=== PATIENT | male | born 1965 | race Caucasian/White ===

== ENCOUNTER 2018-08-25 09:55 | Inpatient (IN) ==
[2018-08-25] MEDS ORDERED: ZOFRAN IV PRN (12:43)
[2018-08-25] MEDS ORDERED: NS 1,000 ML IV SCH (12:45)
[2018-08-25 12:57] LABS: BASO# 0.01 X1000 (0.0-0.2); BASO% 0.1 % (0.0-0.8); EOS# 0.11 X1000 (0.0-0.7); HEMATOCRIT 35.1 % (42.0-52.0); HEMOGLOBIN 11.9 g/dL (14.0-18.0); IMM GRAN# 0.05 X1000 (0.0-0.04); IMM GRAN% 0.5 % (0.0-0.5); LYMPH% 9.3 % (20.5-51.1); MCH 29.3 PG (27-31); MCHC 33.9 g/dL (33-37); MCV 86.5 FL (81-99); MONO# 0.73 X1000 (0.11-0.59); MONO% 6.8 % (1.7-9.3); MPV 10.5 FL (7.4-10.4); NEUT# 8.91 X1000 (1.4-6.5); NEUT% 82.3 % (42.2-75.2); PLT 334 X1000 (130-400); RBC 4.06 XMIL (4.7-6.1); RDW 16.5 % (11.5-14.5); WBC 10.81 X1000 (4.8-10.8)
[2018-08-25 13:01] LABS: INR 1.15; PROTIME 15.6 Seconds (11.0-16.0)
[2018-08-25 13:13] LABS: AMYLASE 79 U/L (20-200); LIPASE 89 U/L (13-60)
[2018-08-25 13:15] LABS: AGAP 9; ALB/GLOB RATIO 0.7; ALBUMIN 3.1 g/dL (3.5-5.0); ALKALINE PHOSPHATASE 617 U/L (32-122); BUN 22 mg/dL (8-22); CALCIUM 8.9 mg/dL (8.8-10.2); CHLORIDE 96 mmol/L (98-107); CK PROFILE 183 U/L (24-204); COSMO 270; CREATININE 0.8 mg/dL (0.7-1.2); ESTIMATED GFR > 60; GLUCOSE 105 mg/dL (70-104); GOT 132 U/L (10-34); GPT 92 U/L (10-44); MAGNESIUM 1.9 mg/dL (1.5-2.7); PHOSPHORUS 3.1 mg/dL (2.7-4.5); POTASSIUM 3.7 mmol/L (3.5-5.1); SODIUM 133 mmol/L (136-145); TCO2 28 mmol/L (25-35); TOTAL BILIRUBIN 9.79 mg/dL (0.20-1.00); TOTAL PROTEIN 7.3 g/dL (6.3-8.3)
[2018-08-25 13:24] LABS: FREE T4 1.09 ng/dL (0.93-1.70); TSH 1.83 uIUmL (0.27-4.20)
[2018-08-25] MEDS ORDERED: ALBUMIN 25% IV ONE (13:34)
--- NOTE | 2018-08-25 14:19 | HISTORY AND PHYSICAL ---
PRIMARY CARE PHYSICIAN: NICOLAS Solis. HADOOP ENGINEER: Brandon Ruiz MD. CHIEF COMPLAINT: Weight loss and jaundice. HISTORY OF PRESENT ILLNESS: Mr. Meneses is a pleasant 53-year-old male with only known medical problem of hypertension. He comes in today with progressively worsening jaundice, mild abdominal discomfort, and a 25 pound weight loss over the past 2 months. He was told in January of last year that he had fatty liver after he had his gallbladder taken out but he never really followed up with that. Over the past 2 months, he has had progressive weight loss and decreased appetite. He also reports that over the past few weeks he has had a cough for which he saw his PCP, ghazala Solis. His blood pressure medicine was changed but this did not really improve symptoms. At that time, he had liver function tests done and was told they were elevated and if it were to get any worse he would need to see a GI doctor. He returned to his PCP and was told that his jaundice had gotten significantly worse and he would need to follow up with Dr. Ruiz. This has all happened over the past week, today he saw Dr. Ruiz who immediately sent him to the hospital for inpatient evaluation as the patient has been progressively jaundiced. The only other real symptom that he complains about is dark tarry stools and he was told over the weekend that he had positive Hemoccult x3. This was testing done on an outpatient basis by his PCP. On physical examination, the patient is significantly jaundiced but otherwise in no acute distress. He denies any alcohol or illicit drug use. Labs have been ordered. He will be admitted for further treatment and evaluation. PAST MEDICAL HISTORY: 1. Hypertension. 2. Nonalcoholic steatosis, steatohepatitis per his report. 3. Type 2 diabetes not requiring insulin. PAST SURGICAL HISTORY: Cholecystectomy, vasectomy, right knee arthroscopy. FAMILY HISTORY: Father from what was felt to be a brain aneurysm. His mother is alive and has heart disease, type 2 diabetes, congestive heart failure, and renal insufficiency. There is no malignancy that he can recall in his immediate family. REVIEW OF SYSTEMS: A 14-point review of systems obtained and found to be negative with the exception of the HPI. HOME MEDICATIONS: Dapagliflozin/metformin 5 mg/1000 mg tablet 1 daily, Hyzaar 50/12.5 mg 1 p.o. daily, glimepiride 4 mg daily. ALLERGIES: No known drug allergies. PHYSICAL EXAMINATION: VITAL SIGNS: Blood pressure is 117/75, heart rate is 86, respiratory rate is 12, O2 saturation 99% on room air, temperature is 98.4. GENERAL: This is a somewhat disheveled-appearing 53-year-old male lying in the hospital bed in no acute distress. SKIN: He is significantly jaundiced. HEENT: Head is atraumatic and normocephalic. Pupils are equal, round, and reactive to light. Oral mucosa is dry and pale. Sclerae are icteric. NECK: Supple. Trachea is midline. There is no JVD. CHEST: Clear to auscultation bilaterally. CARDIOVASCULAR: Regular rate and rhythm. S1 and S2 is noted. GASTROINTESTINAL: Soft, nondistended, mild hepatomegaly is noted. Bowel sounds are hypoactive. EXTREMITIES: Trace edema. Pulses are 2+ bilaterally. DIAGNOSTIC DATA: WBC 10.81, hemoglobin 11.9, hematocrit 35.1. INR 1.15. Sodium 133, potassium 3.7, chloride 96, CO2 28, anion gap 9, BUN 22, creatinine 0.8, glucose 105, calcium 8.9, phosphorus 3.1, magnesium 1.9, total bilirubin 9.79, direct bilirubin 7.8, AST is 132, ALT 92, alkaline phosphatase 617, total protein 7.3, albumin 3.1, amylase 79, lipase 89. ASSESSMENT AND PLAN: 1. Asymptomatic/painless jaundice: Primary concern would be for malignancy given his progressive weight loss and his decreased appetite. His bilirubinemia pattern is more cholestatic in nature. Will check hepatitis panel as well as abdominal ultrasound and abdomen and pelvis CT. We have consulted Dr. Ruiz. We have also ordered CEA, AFP and CA-19-9. 2. Apparent GIB: While the patient denies dat melena or hematochezia, he did report he was told his Hemoccult was + x3. Will order iron studies and await GI recommendations and follow up on imaging. 3. Hypertension. The patient is borderline hypotensive so we will hold his antihypertensives for now, will restart if necessary. 4. Diabetes mellitus type 2 not requiring insulin. Will check a hemoglobin A1c, add pattern sugars, and sliding scale insulin. Deep venous thrombosis prophylaxis with sequential compression devices. Further recommendations to follow. Dictated by NICOLAS Gibson for Yareli Steele MD cc: NICOLAS Gibson MD Amanda Anderson, CRNP I performed a face to face encounter on the patient. I reviewed all labs and imaging on the patient. I agree with the H&P as dictated. was sent to the hospital as a direct admission with a chief complaint of painless jaundice. On exam, he was noted to be jaundiced with a protuberant abdomen. His laboratory studies were concerning for a cholestatic picture. He will undergo a CT of the abdomen and pelvis to further assess the findings. Will consult GI. We may likely require an oncology consultation. KETAN
[2018-08-25 14:51] LABS: URINE SOURCE CLEAN CATCH
[2018-08-25 14:57] LABS: IRON SATURATION 25 %; TIBC 244 ug/dL; TOTAL IRON 61 ug/dL (53-167); UNBOUND IRON 183 ug/dL (112-346)
[2018-08-25 15:15] LABS: BILIRUBIN URINE MODERATE (NEGATIVE); BLOOD URINE NEGATIVE (NEGATIVE); COLOR YELLOW; GLUCOSE URINE TRACE mg/dL (NEGATIVE); KETONE URINE NEGATIVE (NEGATIVE); LEUKOCYTES URINE NEGATIVE (NEGATIVE); NITRITE URINE NEGATIVE (NEGATIVE); PROTEIN URINE TRACE mg/dL (NEGATIVE); SP GRAVITY URINE 1.017; TURBIDITY URINE CLEAR (CLEAR); UROBILINOGEN URINE 3 mg/dL (NORMAL)
[2018-08-25 15:16] LABS: FERRITIN 596 ng/mL (30-400)
[2018-08-25 15:17] LABS: UR EPITHELIAL CELLS <10 /HPF (<10); URINE BACTERIA NEGATIVE /HPF; URINE RBC 20-40 /HPF (<10); URINE WBC <10 /HPF (<10)
--- NOTE | 2018-08-25 15:20 | Diag Imaging Result Doc PS360 ---
EXAM: CT ABD/PELVIS W/PO AND IV CON 08/25/2018 HISTORY: obstructive and painless jaundice TECHNIQUE: This exam was performed using automated exposure control, adjustment of mA or kV according to patient size, and/or use of iterative reconstruction technique. COMMENT: There is no evidence of acute cardiac or pulmonary disease. There is a noncalcified nodule in the lateral left lower lobe on image six measuring less than 6 mm in diameter. There are numerous lucent lesions throughout the liver presumably representing metastatic disease. There are no previous studies available for comparison. There is a apparent obstructing mass in the descending colon with extension beyond the serosa into the surrounding fat and with apparent paracolic adenopathy. There is left para-aortic adenopathy with a clearly pathologic node seen inferior to the renal pedicle measuring 2.5 cm in diameter. The portacaval node is abnormal in appearance with peripheral enhancement measuring 2.8 cm in diameter. There is extensive vanita hepatis adenopathy. This may be responsible for obstruction of the biliary system at the level of the confluence of the left and right duct. There has been cholecystectomy. There are granulomata in the spleen. The pancreas is unremarkable. The adrenal glands are not enlarged. The kidneys are without evidence of hydronephrosis or mass. The descending colonic mass abuts Gerota's fascia and there is some thickening of the fascia. There is a nodular density adjacent to the left kidney measuring 13 mm in diameter which may be an exophytic cyst. Pelvis: There is stool in the rectosigmoid colon. There is free fluid in the pelvis. The urinary bladder is not distended. The appendix is not distended but there are multiple nodules adjacent to the appendix and cecum which are probably peritoneal implants. There is degenerative disc disease at L5-S1 and bilateral spondylolysis at L5. No acute bony abnormalities are demonstrated. IMPRESSION: 1. Malignant mass in the descending colon producing obstruction of the colon with constipation in the right colon and transverse colon. Local invasion and local and retroperitoneal adenopathy. Malignant ascites with peritoneal implants. 2. Numerous hepatic metastatic lesions. Periportal adenopathy. 3. Possible metastatic lesion in the left lower lobe. Electronically signed by Franko Nagel 08/25/2018 3:17 PM
[2018-08-25] MEDS ORDERED: DILAUDID IV PRN (15:27)
--- NOTE | 2018-08-25 15:32 | Diag Imaging Result Doc PS360 ---
EXAM: US ABDOMEN-COMPLETE 08/25/2018 HISTORY: obstructive/painless jaundice TECHNIQUE: Abdominal ultrasound COMMENT: The pancreatic head and body are normal in appearance. The liver is markedly inhomogeneous with multiple hypoechoic masses. The visualized portions of the aorta and inferior vena cava are within normal limits. There is antegrade flow in the portal vein. The common hepatic duct is not distended measuring less than 5 mm. The spleen is not enlarged. The kidneys are without evidence of hydronephrosis or mass. The gallbladder is surgically absent. IMPRESSION: Extensive hepatic metastatic disease. Electronically signed by Franko Nagel 08/25/2018 3:29 PM
[2018-08-25] MEDS: HUMULIN R SUBQ SCH ×2 (18:13→22:28)
[2018-08-25] MEDS: FOLIC ACID 1 MG in NS 50 ML IV SCH (18:17)
[2018-08-26 06:28] LABS: BASO# 0.02 X1000 (0.0-0.2); BASO% 0.2 % (0.0-0.8); EOS# 0.18 X1000 (0.0-0.7); EOS% 1.6 % (0.0-10.0); HEMATOCRIT 35.2 % (42.0-52.0); IMM GRAN# 0.04 X1000 (0.0-0.04); IMM GRAN% 0.4 % (0.0-0.5); LYMPH# 1.13 X1000 (1.2-3.4); LYMPH% 10.1 % (20.5-51.1); MCH 29.8 PG (27-31); MCHC 34.1 g/dL (33-37); MCV 87.3 FL (81-99); MONO# 0.96 X1000 (0.11-0.59); MONO% 8.5 % (1.7-9.3); MPV 10.6 FL (7.4-10.4); NEUT# 8.91 X1000 (1.4-6.5); NEUT% 79.2 % (42.2-75.2); PLT 336 X1000 (130-400); RBC 4.03 XMIL (4.7-6.1); WBC 11.24 X1000 (4.8-10.8)
[2018-08-26 07:02] LABS: AGAP 13; ALB/GLOB RATIO 0.8; ALBUMIN 3.2 g/dL (3.5-5.0); ALKALINE PHOSPHATASE 613 U/L (32-122); BUN 19 mg/dL (8-22); CALCIUM 8.9 mg/dL (8.8-10.2); CHLORIDE 97 mmol/L (98-107); COSMO 279; ESTIMATED GFR > 60; GLUCOSE 123 mg/dL (70-104); GOT 125 U/L (10-34); GPT 87 U/L (10-44); SODIUM 138 mmol/L (136-145); TCO2 28 mmol/L (25-35); TOTAL BILIRUBIN 9.61 mg/dL (0.20-1.00); TOTAL PROTEIN 7.1 g/dL (6.3-8.3)
[2018-08-26] MEDS: HUMULIN R SUBQ SCH ×4 (07:31→20:46)
--- NOTE | 2018-08-26 09:34 | Diag Imaging Result Doc PS360 ---
CT GUIDED BX LIVER - 08/26/2018 INDICATION: liver metastasis TECHNIQUE: The risks and benefits of the procedure were discussed with the patient. All questions were answered. Written and verbal informed consent was obtained. Overlying skin was prepped and draped in sterile fashion. Anesthesia was achieved with injection of 10 cc of 1% lidocaine. COMPARISON: CT from 08/25/2018 FINDINGS: The right lobe of the liver was biopsied. Approximately 15 core needle biopsy specimens were obtained. Pathology evaluated frozen sections and indicated the specimens were adequate. There were no complications from the procedure. IMPRESSION: Successful and uncomplicated CT-guided liver metastasis biopsy. Electronically signed by Camilo Roman 08/26/2018 9:31 AM
[2018-08-26 11:21] LABS: HEPATITIS PROFILE ACUTE SEE COMMENTS
--- NOTE | 2018-08-26 15:42 | GASTROENTEROLOGY CONSULTATION ---
DATE: 08/26/2018 REASON FOR CONSULTATION: Obstructive jaundice. HISTORY OF PRESENT ILLNESS: Mr. Aj Meneses is a 53-year-old gentleman with past medical history of hypertension, noninsulin dependent diabetes, fatty liver, who was initially seen by myself in consultation on 08/18 for abnormal LFTs and weight loss, who presents with worsening jaundice and LFT abnormalities. The patient was initially diagnosed with fatty liver back in January 2018. He underwent a laparoscopic cholecystectomy in February for presumably dysfunctional gallbladder. Since that time he reported having cough and worsening LFTs with enzymes up to 500. He also reported a 20 pound weight loss over a 3-month period in the setting of decreased appetite, early satiety. He had Hemoccult done by his primary care doctor that was positive for blood. He denies any personal or family history of liver disease or GI malignancies. On 08/25 he re-presented with new onset jaundice. He had LFTs done on 01/17 that showed a total bilirubin of 3.8 with alkaline phosphatase of 548, AST of 100, ALT of 104, albumin of 3.7, total protein of 7.5. In the office the patient reported some abdominal discomfort with gas. No significant abdominal pain, nausea, vomiting, diarrhea, constipation. He says he felt warm but no documented fevers. His vital signs were notable for some mild low-grade tachycardia. Given his new onset jaundice and tachycardia, the patient was referred to [facility] for evaluation of possible cholangitis and/or choledocholithiasis. On presentation his labs were notable for mild leukocytosis of 10.8, hemoglobin of 11.9, cholestatic LFTs with a total bilirubin of 9.7, AST of 132, ALT of 92, alkaline phosphatase of 617, sodium 133. CEA of 1521. CT abdomen and pelvis revealed a malignant mass in descending colon producing obstruction of the colon with constipation in the right colon and transverse colon, local invasion and local retroperitoneal adenopathy, malignant ascites with peritoneal implants. He also had numerous hepatic metastases with periportal lymphadenopathy and a possible metastatic lesion in the left lower lobe of the lung. Followup ultrasound showed extensive metastatic disease within normal common bile duct measuring 5 mm without intra or extrahepatic biliary dilation. PAST MEDICAL HISTORY: As per HPI. PAST SURGICAL HISTORY: Cholecystectomy in February 2018, meniscus repair. HOME MEDICATIONS: Losartan, hydrochlorothiazide, glimepiride, Xigduo XR. ALLERGIES: No known drug allergies. FAMILY HISTORY: No family history of GI malignancies or liver disease. SOCIAL HISTORY: No smoking, alcohol or drug use. REVIEW OF SYSTEMS: As per HPI, otherwise 12 point review of systems is negative. PHYSICAL EXAMINATION: Vital Signs: Temperature 98.7 degrees, heart rate 101, respiratory rate 18, blood pressure 119/70, O2 saturation 98% on room air. General: Patient is well-nourished, well-developed male in no acute distress. HEENT: Sclera icterus is present. Extraocular motor intact. Moist mucous membranes. Neck: Supple. No JVD. No lymphadenopathy. Cardiac: Tachycardic, regular. No murmurs. Lungs: Clear to auscultation bilaterally. No wheezing. Abdomen: Soft, nondistended. Mild tenderness to palpation in the upper abdomen. No rebound or guarding. No ascites. Extremities: No clubbing, cyanosis, or edema. Skin: Jaundice. Warm and well perfused. NEUROLOGIC: Nonfocal. LABS: White count of 11.24, hemoglobin of 12.0, platelets of 336,000. Sodium of 138, potassium 5.0, chloride 97, bicarb 28, BUN 19, creatinine 1.0, glucose of 123, ferritin 596, total bilirubin of 9.6, AST of 125, ALT of 87, alkaline phosphatase 613, iron 61, TIBC of 244, total bilirubin of 9.6, AST of 125, ALT of 87, alkaline phosphatase of 613, albumin of 3.2, lipase of 89, vitamin B12 710, folate 8.0, TSH 1.8. UA shows bilirubinemia and protein. RBCs are present as well. IMAGING: As we discussed in the HPI. ASSESSMENT AND PLAN: Mr. Aj Meneses is a 53-year-old gentleman with history of hypertension, [id number] diabetes, who presents with obstructive jaundice secondary to diffuse metastatic disease from a descending colon mass that is partially obstructed. The patient denies any GI obstructive symptoms including constipation, nausea, vomiting, or significant abdominal pain. He does not appear to be chologenic. His vitals are only notable for mild tachycardia, no fevers, significant abdominal pain. His mental status is normal. His INR is normal. There is no evidence of biliary obstruction as the biliary bile ducts are not dilated. The patient is being seen in consultation with Hematology/Oncology with Dr. Bustamante who is aware of this case and I have spoken to him extensively about this patient. We have set him up for a biopsy of the liver metastasis. He is currently NPO. We are trending his liver function tests daily. I have made the patient and his aware of the concern for colon cancer and overall I believe the prognosis is not great given his rapid increase in bilirubin in a matter of a week. Other findings notable including anemia likely secondary to his colon mass, hyponatremia which is resolved. He has some borderline hyperkalemia likely from volume depletion, abnormal liver function tests with a cholestatic pattern likely secondary to intrahepatic obstruction from known metastases. Thank you for this consult. We will follow with you. Please call with any questions or concerns.
[2018-08-26] MEDS ORDERED: ZOFRAN 16 MG in NS 100 ML IV ONE (16:00)
[2018-08-26] MEDS ORDERED: AVASTIN IV ONE (16:30)
[2018-08-26] MEDS ORDERED: NS IV ONE ×2 (16:30→20:00)
--- NOTE | 2018-08-26 16:53 | PROGRESS NOTE ---
DATE: 08/26/2018 SUBJECTIVE: The patient is resting comfortably in bed. He denies having any pain or shortness of breath. OBJECTIVE: Vital Signs: Temperature 98.2 degrees, blood pressure 123/86, heart rate 107, respirations 18, O2 saturation 100% on room air. General: This is a middle- aged male lying in bed in no acute distress. Skin: Positive for jaundice. Eyes: Positive for scleral icterus. Heart: S1, S2 normal. Tachycardic. Lungs: Equal air entry bilaterally. Abdomen: Distended, positive for ascites, nontender. Extremities: Trace pedal edema. Neurologic: The patient is alert and oriented x3. LABORATORY DATA: White blood cell count 11, hemoglobin 12, hematocrit 35, platelets 336,000. Sodium 138, potassium 5, chloride 97, CO2 28, BUN 19, creatinine 1, glucose 123. AST 125, ALT 87, alkaline phosphatase 613, albumin 3.2, total bilirubin 9.6. ASSESSMENT AND PLAN: 1. Colonic mass with widespread metastasis. The patient had a liver biopsy done this morning. We will await the pathology report and further recommendations from Oncology. 2. Diabetes mellitus type 2. Continue with sliding scale insulin. 3. Folate deficiency. Will start the patient on folic acid. 4. Deep vein thrombosis prophylaxis. We will continue with sequential compression devices for today and start Lovenox tomorrow. cc: Yareli Steele MD MTDD
[2018-08-26] MEDS ORDERED: D5W IV ONE (18:00)
[2018-08-26] MEDS ORDERED: LEUCOVORIN IV ONE (18:00)
[2018-08-26] MEDS ORDERED: [UNRECOGNIZED DRUG - OTHER] IV ONE (20:00)
[2018-08-26] MEDS ORDERED: [UNRECOGNIZED DRUG - MIXTURE] IV ONE (20:00)
[2018-08-26] MEDS: MIRALAX PO SCH (20:46)
[2018-08-27] MEDS: HUMULIN R SUBQ SCH ×4 (06:38→21:06)
[2018-08-27 07:40] LABS: BASO# 0.01 X1000 (0.0-0.2); BASO% 0.1 % (0.0-0.8); EOS# 0.16 X1000 (0.0-0.7); EOS% 1.8 % (0.0-10.0); HEMATOCRIT 33.8 % (42.0-52.0); HEMOGLOBIN 11.2 g/dL (14.0-18.0); IMM GRAN# 0.03 X1000 (0.0-0.04); IMM GRAN% 0.3 % (0.0-0.5); LYMPH# 0.95 X1000 (1.2-3.4); LYMPH% 10.7 % (20.5-51.1); MCH 29.2 PG (27-31); MCHC 33.1 g/dL (33-37); MONO# 0.66 X1000 (0.11-0.59); MONO% 7.5 % (1.7-9.3); MPV 10.6 FL (7.4-10.4); NEUT# 7.04 X1000 (1.4-6.5); NEUT% 79.6 % (42.2-75.2); PLT 294 X1000 (130-400); RBC 3.84 XMIL (4.7-6.1); RDW 17.3 % (11.5-14.5); WBC 8.85 X1000 (4.8-10.8)
[2018-08-27] MEDS: PROTONIX PO SCH (08:10)
[2018-08-27 08:31] LABS: AGAP 14; BUN 15 mg/dL (8-22); CHLORIDE 99 mmol/L (98-107); GLUCOSE 113 mg/dL (70-104); POTASSIUM 4.1 mmol/L (3.5-5.1); SODIUM 137 mmol/L (136-145); TCO2 24 mmol/L (25-35)
[2018-08-27 08:32] LABS: ALB/GLOB RATIO 0.8; ALBUMIN 2.9 g/dL (3.5-5.0); ALKALINE PHOSPHATASE 614 U/L (32-122); CALCIUM 8.7 mg/dL (8.8-10.2); COSMO 275; CREATININE 0.9 mg/dL (0.7-1.2); ESTIMATED GFR > 60; GOT 114 U/L (10-34); GPT 84 U/L (10-44); TOTAL BILIRUBIN 9.34 mg/dL (0.20-1.00); TOTAL PROTEIN 6.7 g/dL (6.3-8.3)
[2018-08-27] MEDS: LOVENOX SUBQ SCH (10:47)
[2018-08-27] MEDS: MIRALAX PO SCH ×3 (10:52→19:02)
[2018-08-27 11:16] LABS: IRON SATURATION 26 %; TIBC 227 ug/dL; TOTAL IRON 59 ug/dL (53-167); UNBOUND IRON 168 ug/dL (112-346)
--- NOTE | 2018-08-27 17:25 | HEMO/ONC CONSULTATION ---
DATE: 08/27/2018 REQUESTING PHYSICIAN: Dr. Ruiz. REASON FOR CONSULTATION: Metastatic colon cancer. HISTORY OF PRESENT ILLNESS: Patient is a 53-year-old male, with a past medical history of hypertension, diabetes and fatty liver, who was recently seen by Dr. Ruiz for weight loss and elevated LFTs. He had mild jaundice at that time. Within a week, his LFTs have significantly worsened. Of note, he had laparoscopic cholecystectomy in February for presumably gallbladder dysfunction. He was admitted to the hospital for evaluation and further management. A CT scan was obtained, which revealed the malignant descending colon mass, along with retroperitoneal adenopathy, malignant ascites, peripheral implants, diffuse metastases involving the liver and possible lung metastases. CEA was elevated at 1521. I have been consulted for further management. Bilirubin at this point is over 9. PAST MEDICAL HISTORY: Diabetes, hypertension, fatty liver disease. PAST SURGICAL HISTORY: Cholecystectomy in February, meniscus repair. ALLERGIES: No known drug allergies. FAMILY HISTORY: Noncontributory. SOCIAL HISTORY: Patient is and lives with his . He denies smoking, alcohol, or substance abuse. REVIEW OF SYSTEMS: Positive for weight loss and some abdominal discomfort. All other review of systems are negative. CURRENT MEDICATIONS: Lovenox, Dilaudid, Zofran, MiraLAX. PHYSICAL EXAMINATION: General: Patient is a well-developed, well-nourished male, in no acute distress. Vital Signs: Temperature 97.7 degrees, pulse 109, blood pressure 125/84. Eyes: EOMI. PERRLA. Anicteric. Mucous membranes are moist. Neck: Supple without JVD, thyromegaly, or nodules. Lymph node survey: Negative. Cardiac Exam: Regular rate and rhythm. Normal S1, S2. Chest: Clear to auscultation. No wheezes or crackles. Abdomen: Soft, nontender, without hepatosplenomegaly or masses. Extremities: No cyanosis, clubbing or edema. Neurological exam: Alert and oriented x3. No motor deficits. Skin: Without rashes. LABORATORY DATA: White count 11.2, hemoglobin 12, hematocrit 35, MCV 87, platelets 336. BUN 19, creatinine 1.0, bilirubin 9.6, alkaline phosphatase 613, AST 125, ALT 87. CEA 1521, B 12 710, folate 8.0. X-RAY DATA: CT of the abdomen and pelvis: Malignant mass in the descending colon with constipation in the right colon and the transverse colon. Local invasion and retroperitoneal lymphadenopathy, malignant ascites and peritoneal implants, numerous hepatic metastasis, periportal lymphadenopathy, possible metastatic lesion in the left lower lobe. ASSESSMENT AND PLAN: 1. Colonic malignancy with diffuse metastasis and impending liver failure: I had a lengthy discussion regarding his disease status, prognosis and further management with the patient and his family, as well as with Dr. Ruiz and Dr. Steele. We will proceed as soon as possible with a liver ultrasound. I have discussed with Dr. Roman and with Dr. Marshall Sierra to obtain viable pathology and issue a report immediately. Time is of the essence here and, hence, I will make arrangements to get him started on chemotherapy as soon as I know that this is malignancy. Patient understands the seriousness of this issue and is willing to jump in and proceed with chemotherapy if possible within a day. Based on his liver function tests, I think we may be able to offer him FOLFOX with Avastin with some dose reductions. He understands the risks of side effects as well as with his chemotherapy given his significantly elevated bilirubin. This has been discussed with the physicians involved as well. 2. Deep vein thrombosis prophylaxis: He is at high risk for deep vein thrombosis. Continue Lovenox as you are doing. 3. Constipation: Start MiraLAX three times a day at this time. At some point, we may have to consider a stent placement for this. 4. Anemia: Check iron profile. This may be iron deficiency. Intravenous iron as needed. Folate levels are low. Proceed with repeating these as well. Thank you for this consult. cc: Jatin Bustamante MD [facility]
--- NOTE | 2018-08-27 17:32 | PROGRESS NOTE ---
DATE: 08/27/2018 SUBJECTIVE: The patient states that he feels fine. He was started on chemotherapy yesterday. He has no complaints today. OBJECTIVE: Vital Signs: Temperature 98.1 degrees, blood pressure 123/76, heart rate 89, respirations 18, and O2 saturations 100% on room air. General: This is a chronically ill- appearing middle-aged male lying in bed in no acute distress. HEENT: Head normocephalic, atraumatic. Eyes are positive for scleral icterus. Skin: The patient is jaundiced. Heart: S1, S2 normal. Regular rate and rhythm. Lungs: Clear to auscultation bilaterally. No wheezing. No rales. No rhonchi. Abdomen: Positive bowel sounds. Soft, mildly distended. Nontender. Extremities: No edema. No cyanosis. No calf tenderness. Neurologic: The patient is alert and oriented x4. No focal neurologic deficits noted. LABORATORY: White blood cell count 8.8, hemoglobin 11, hematocrit 33, platelets 294,000. Sodium 137, potassium 4.1, BUN 15, creatinine 0.9, glucose 113, AST 114, ALT 84, alkaline phosphatase 614, and total bilirubin 9.3. ASSESSMENT AND PLAN: 1. Colonic mass with widespread metastasis. The liver biopsy pathology report is currently pending. Continue with chemotherapy as ordered by the oncologist. 2. Deep vein thrombosis prophylaxis. Continue with Lovenox. 3. Diabetes mellitus type 2. Continue on sliding scale insulin. 4. Anemia. Stable. cc: Yareli Steele MD
[2018-08-27] MEDS ORDERED: ZOFRAN 16 MG in NS 100 ML IV ONE (18:00)
[2018-08-27] MEDS ORDERED: DECADRON 20 MG in NS 100 ML IV ONE (18:30)
[2018-08-27] MEDS ORDERED: EMEND 150 MG in NS 145 ML IV ONE (19:00)
[2018-08-27] MEDS ORDERED: [UNRECOGNIZED DRUG - OTHER] IV ONE (19:30)
[2018-08-27] MEDS ORDERED: D5W IV ONE ×2 (19:30)
[2018-08-27] MEDS ORDERED: LEUCOVORIN IV ONE (19:30)
[2018-08-27] MEDS: FOLIC ACID 1 MG in NS 50 ML IV SCH (19:51)
[2018-08-27] MEDS ORDERED: D5W 50 ML IV ONE (21:30)
[2018-08-27] MEDS ORDERED: [UNRECOGNIZED DRUG - MIXTURE] IV ONE (21:30)
--- NOTE | 2018-08-27 21:58 | GASTROENTEROLOGY PROGRESS NOTE ---
DATE: 08/27/2018 SUBJECTIVE: The patient is resting in bed. His family is at bedside. He appears to be jaundiced. He had moved his bowels 3 times today. He is taking MiraLAX. He describes discomfort in the right upper quadrant. OBJECTIVE: Vital signs: Temperature of 98.1 degrees, pulse of 89, respiratory rate 18, blood pressure 123/76, O2 saturation is 100% on room air. Body weight of 135 pounds. BMI is 727.4 kg. General: He is moderately developed, moderately nourished, lying in bed, in no acute distress. HEENT: Pale conjunctivae. Icteric sclerae. Nasal cannula in place. Neck: Supple. Abdomen: Distended. Discomfort in the right upper quadrant. No rebound. Extremities: No cyanosis or clubbing. Bilateral lower extremity edema. Neurologic: Alert, awake, and oriented x3. LABORATORY DATA: Hemoglobin and hematocrit is 7.2 and 33.8, white count of 8.5, platelet count of 294,000. Sodium 137, potassium 4.1, chloride 99, bicarbonate 24, anion gap of 14, BUN of 15, creatinine 0.9, glucose 113, calcium 8.7%, O2 saturation of 26%, iron level of 29, TIBC 27, ferritin of 484, total bilirubin is 9.34, AST 114, ALT 84, alkaline phosphatase 614, total protein 6, albumin of 2.9. CEA is 1521, CA-19-9 is 8637, and AFP is less than 2.7. Hepatitis panel is nonreactive. IMPRESSION AND PLAN: 1. Elevated carcinoembryonic antigen and CA 19. Suspect gastrointestinal malignancy with liver metastases. He had a liver biopsy done yesterday, we will follow up on the results. Oncology has been following, Dr. Bustamante has started him on chemotherapy. 2. Jaundice secondary to the above. 3. Type 2 diabetes on sliding-scale insulin. 4. Deep venous thrombosis prophylaxis with sequential compression devices and Lovenox. 5. Gastrointestinal prophylaxis. We will start with Protonix. 6. The above plan of care was discussed with the patient and family at bedside and all questions were answered. Please call us with any further questions. cc: MD Jatin Alfaro MD [facility]
[2018-08-27] MEDS ORDERED: [UNRECOGNIZED DRUG - OTHER] IV ONE (22:00)
[2018-08-27] MEDS ORDERED: NS IV ONE (22:00)
[2018-08-28] MEDS: PROTONIX PO SCH (06:14)
[2018-08-28] MEDS: HUMULIN R SUBQ SCH ×3 (06:14→17:08)
[2018-08-28 07:29] LABS: HEMATOCRIT 35.3 % (42.0-52.0); IMM GRAN# 0.02 X1000 (0.0-0.04); IMM GRAN% 0.3 % (0.0-0.5); LYMPH# 0.41 X1000 (1.2-3.4); LYMPH% 6.5 % (20.5-51.1); MCH 29.9 PG (27-31); MONO# 0.07 X1000 (0.11-0.59); MONO% 1.1 % (1.7-9.3); MPV 10.3 FL (7.4-10.4); NEUT# 5.85 X1000 (1.4-6.5); NEUT% 92.1 % (42.2-75.2); PLT 309 X1000 (130-400); RBC 4.01 XMIL (4.7-6.1); RDW 17.4 % (11.5-14.5); WBC 6.35 X1000 (4.8-10.8)
[2018-08-28 07:36] LABS: AGAP 12; ALB/GLOB RATIO 0.7; ALKALINE PHOSPHATASE 647 U/L (32-122); BUN 14 mg/dL (8-22); CALCIUM 8.8 mg/dL (8.8-10.2); CHLORIDE 97 mmol/L (98-107); COSMO 277; CREATININE 0.8 mg/dL (0.7-1.2); ESTIMATED GFR > 60; GLUCOSE 250 mg/dL (70-104); GOT 113 U/L (10-34); GPT 93 U/L (10-44); POTASSIUM 3.8 mmol/L (3.5-5.1); SODIUM 134 mmol/L (136-145); TCO2 25 mmol/L (25-35); TOTAL BILIRUBIN 9.55 mg/dL (0.20-1.00); TOTAL PROTEIN 7.2 g/dL (6.3-8.3)
[2018-08-28] MEDS: MIRALAX PO SCH ×3 (10:29→17:08)
[2018-08-28] MEDS: LOVENOX SUBQ SCH (10:29)
[2018-08-28] MEDS ORDERED: FOLIC ACID PO ONE (16:20)
--- NOTE | 2018-08-28 17:33 | HEMO/ONC PROGRESS NOTE ---
DATE: 08/28/2018 SUBJECTIVE: Patient reports that he is doing well. He is tolerating chemotherapy so far without any problems. No nausea or vomiting. Bowels are moving well. He seems to be in good spirits. OBJECTIVE: Vital Signs: Temperature 97.6, 89, blood pressure 125/82. HEENT: Eyes reveal icterus. Mucous membranes are moist. Cardiac: Regular rate and rhythm. Normal S1, S2. Chest: Clear to auscultation. Abdomen: Soft, nontender. Without hepatosplenomegaly or masses. Extremities: No cyanosis, clubbing or edema. Neurologic: Alert and oriented x 3. No focal motor deficits. LABORATORY DATA: White count 6.3, hemoglobin 12, platelets 309,000. BUN 14, creatinine 0.8. Glucose 250. Bilirubin 9.5, alkaline phosphatase 647, AST 93, ALT 113. ASSESSMENT AND PLAN: 1. Colon adenocarcinoma with diffuse metastases: The patient has been started on pulse ox with Avastin. He has tolerated chemotherapy so far very well. He is due to finish 5-FU infusional pump later today. After that he can be discharged. He will follow up in the clinic for management. 2. Nausea prophylaxis: Continue current management. He will be discharged home on Reglan, Phenergan and Zofran to be taken as advised. 3. Constipation: He has large colonic mass. With MiraLAX he is having good bowel movements. He may require a stent and we will evaluate this outpatient. 4. Anemia: Iron profile appears adequate at this time. Continue folate replacement. cc: Jatin Bustamante MD MTDD
--- NOTE | 2018-08-28 18:31 | GASTROENTEROLOGY PROGRESS NOTE ---
DATE: 08/28/2018 SUBJECTIVE: The patient is resting in bed. His is at the bedside. He is currently receiving chemotherapy. He has some abdominal pain in the pelvic region along with some feeling of mild constipation. He has moved his bowels today. He is taking MiraLAX. OBJECTIVE: Vital signs: Temperature of 97.8 degrees, pulse of 101, respiratory rate of 16, blood pressure 140/87, saturating 100% on room air, body weight of 175 pounds, BMI 27.4 kg/m. General Appearance: Moderately well nourished, lying in bed in no acute distress. HEENT: Mild pallor. Icteric sclerae. Neck: Supple. Abdomen: Distended. Discomfort in the pelvic region. No rebound. Extremities: No cyanosis or clubbing. Neurologic: Alert, awake, oriented. LABORATORY DATA: Hemoglobin and hematocrit is 12 and 35.3, white count of 6.35 platelet count of 1309, sodium of 130, potassium 3.8, chloride 97, bicarb of 24, anion gap 12, BUN of 14, creatinine 1, glucose of 280, calcium is 8.8, total bilirubin is 9.5, AST 113, ALT 93, alkaline phosphatase 647, total protein 7.2, albumin of 3. Hepatitis panel is nonreactive. IMPRESSION AND PLAN: 1. Colon mass with widespread metastases. Dr. Bustamante is following. He is receiving chemotherapy by Dr. Bustamante. The plan is for him to complete chemotherapy and most likely go home today to follow with Dr. Bustamante as an outpatient. 2. Constipation. Continue MiraLAX twice daily. 3. Deep venous thrombosis prophylaxis. Lovenox. 4. Type 2 diabetes on sliding scale insulin. 5. Anemia. Continue to watch for now. 6. Jaundice secondary to hepatic metastases. Need to follow up with Dr. Bustamante as an outpatient. 7. GI prophylaxis with Protonix once daily. 8. Above plans with the patient and family at bedside. All questions answered. Please call us with any further questions. cc: MD Jatin Alfaro MD
[2018-08-28 19:57] VITALS: BP 155/89
--- NOTE | 2018-08-28 21:10 | DISCHARGE SUMMARY ---
ADMISSION DATE: 08/25/2018 DISCHARGE DATE: FINAL DISCHARGE DIAGNOSIS: 1. Colon adenocarcinoma with widespread metastasis. 2. Diabetes mellitus type 2. 3. Constipation. 4. Anemia. 5. Folate deficiency. CONSULTATIONS: 1. GI consultation with Dr. Ruiz. 2. Oncology consultation with Dr. Bustamante. IMAGIN. Abdominal ultrasound performed on 08/25/2018 that revealed extensive hepatic metastatic disease. 2. CT of the abdomen and pelvis with oral and IV contrast which revealed a malignant mass in the descending colon producing obstruction of the colon with constipation in the right colon and transverse colon. Local and retroperitoneal adenopathy. Numerous hepatic metastatic lesions. 3. CT-guided liver biopsy. HOSPITAL COURSE: Mr. Meneses is a 53-year-old male with a history of diabetes who was directly admitted with painless jaundice. Laboratory studies were performed and it was revealed that the patient had a total bilirubin of 9.7 with a direct bilirubin of 7.8 and an AST of 132, an ALT of 92 with an alkaline phosphatase of 617. An abdominal ultrasound was done that revealed widespread metastatic lesions on the liver. This was then followed by a CT of the abdomen and pelvis that revealed a malignant mass in the descending colon producing obstruction of the colon with constipation in the right colon and transverse colon with local invasion and local and retroperitoneal adenopathy. In light of these findings, GI and Oncology were consulted. The patient was immediately scheduled for a CT-guided biopsy that was performed on August 26 and the patient was started on chemotherapy that same day. The patient has been on chemotherapy for the last several days of his hospitalization. The patient will complete his chemo today and will be discharged home. The patient has been started on antiemetic therapy and laxative therapy. The patient will follow up with Dr. Bustamante for further instructions and treatment. DISCHARGE MEDICATIONS: 1. Phenergan 25 mg oral every 6 hours p.r.n. 2. Zofran 4 mg oral every 6 hours p.r.n. 3. MiraLAX 17 g p.o. twice a day. 4. Amaryl 4 mg p.o. daily. 5. Hyzaar 1 tab oral daily. 6. Xigduo 1 tablet oral daily. 7. Folic acid 1 mg oral daily. DISCHARGE DIET: As tolerated. Diabetic diet. DISCHARGE INSTRUCTIONS: The patient will follow up with Dr. Bustamante as scheduled by his clinic. cc: Yareli Steele MD MTDD
== END 2018-08-28 22:30 | disposition home or self-care (01) | DRG 375 ==
LOC: SUATTDRO 09:55 → DIRADM 09:55 → 4N 10:05 → 3N 08-26 15:02
PROVIDERS: ATTEND Internal Medicine
CPT/HCPCS: 47000; 74177; 76700; 77012; 80053; 80074; 81001; 82105; 82150; 82248; 82378; 82550; 82607; 82728; 82746; 82948; 83540; 83550; 83690; 83735; 84100; 84439; 84443; 85025; 85610; 86301; 88305; 88313; 88331; A9270; J0640; J1453; J1650; J2405; J7030; J7060; J9035; J9190; J9263; P9047; Q9967; XXXXX

== ENCOUNTER 2018-09-03 12:30 | Inpatient (IN) ==
[2018-09-03 13:37] LABS: INR 1.61; PROTIME 20.4 Seconds (11.0-16.0)
[2018-09-03 13:38] LABS: PTT 46.1 Seconds (22.3-41.8)
--- NOTE | 2018-09-03 13:40 | Diag Imaging Result Doc PS360 ---
EXAM: CHEST-PORTABLE INDICATION: CP TECHNIQUE: One view COMPARISON: 08/16/2018 FINDINGS: Lung volumes are low. There is suggestion of mild atelectasis at the lung bases. The lungs are grossly clear, otherwise. There is no discrete pleural fluid collection or pneumothorax. The cardiac silhouette appears to be within normal limits accounting for magnification from AP technique. IMPRESSION: Low lung volumes and suggestion of mild subsegmental atelectasis. Grossly unremarkable, otherwise. Electronically signed by Mil Borden 09/03/2018 1:38 PM
[2018-09-03 13:44] LABS: BASO# 0.01 X1000 (0.0-0.2); BASO% 0.1 % (0.0-0.8); HEMATOCRIT 35.8 % (42.0-52.0); IMM GRAN# 0.07 X1000 (0.0-0.04); IMM GRAN% 0.6 % (0.0-0.5); LYMPH# 0.33 X1000 (1.2-3.4); MCH 29.9 PG (27-31); MCHC 33.5 g/dL (33-37); MCV 89.3 FL (81-99); MONO# 0.67 X1000 (0.11-0.59); MPV 10.6 FL (7.4-10.4); NEUT% 90.3 % (42.2-75.2); PLT 489 X1000 (130-400); RBC 4.01 XMIL (4.7-6.1); RDW 19.2 % (11.5-14.5); WBC 11.18 X1000 (4.8-10.8)
[2018-09-03 13:50] LABS: ALB/GLOB RATIO 0.9; ALBUMIN 2.8 g/dL (3.5-5.0); CREATININE 2.4 mg/dL (0.7-1.2); POTASSIUM 4.7 mmol/L (3.5-5.1)
[2018-09-03 13:55] LABS: TOTAL BILIRUBIN 22.69 mg/dL (0.20-1.00)
[2018-09-03 15:45] LABS: PHOSPHORUS 6.3 mg/dL (2.7-4.5)
[2018-09-03] MEDS ORDERED: ZOFRAN IV PRN (15:47)
[2018-09-03 15:49] LABS: URINE SOURCE CLEAN CATCH
[2018-09-03 15:53] LABS: BLOOD URINE TRACE (NEGATIVE); COLOR ORANGE; GLUCOSE URINE TRACE mg/dL (NEGATIVE); KETONE URINE NEGATIVE (NEGATIVE); LEUKOCYTES URINE NEGATIVE (NEGATIVE); NITRITE URINE NEGATIVE (NEGATIVE); PROTEIN URINE 30 mg/dL (NEGATIVE); SP GRAVITY URINE 1.023; TURBIDITY URINE TURBID (CLEAR); UROBILINOGEN URINE NORMAL (NORMAL)
[2018-09-03 15:54] LABS: UR EPITHELIAL CELLS <10 /HPF (<10); URINE BACTERIA NEGATIVE /HPF; URINE RBC 20-40 /HPF (<10); URINE WBC <10 /HPF (<10)
[2018-09-03 16:13] LABS: BILIRUBIN URINE LARGE (NEGATIVE)
[2018-09-03] MEDS ORDERED: SODIUM CHLORIDE 0.9% INJ SCH (16:15)
[2018-09-03] MEDS: NS 1,000 ML IV SCH (16:50)
--- NOTE | 2018-09-03 16:50 | PROVIDER DOCUMENTATION ---
This chart was entered by Shaunna Castillo Scribe, acting as scribe for Fernando Brown MD. HPI-General Adult - General Chief Complaint: Dizziness Stated Complaint: HIGH HEART RATE,SOB,LOW BLOOD PRESSURE Time Seen by Provider: 09/03/18 13:48 Source: patient Allergies/Adverse Reactions: Patient Allergies Allergy/AdvReac Type Severity Reaction Status Date / Time No Known Allergies Allergy Verified 09/01/18 08:29 Home Medications: Home Medication List Medication Instructions Recorded Confirmed Last Taken Type Folic Acid 1 mg PO DAILY #30 tab 08/28/18 09/02/18 09/01/18 08:00 Rx Ondansetron [Zofran] 4 mg PO Q6H PRN PRN #60 tab 08/28/18 09/01/18 Unknown Rx Polyethylene Glycol 3350 [Miralax] 17 gm PO BID #60 powd.pack 08/28/18 09/02/18 09/01/18 08:30 Rx Promethazine [Phenergan] 25 mg PO Q6H PRN PRN #60 tab 08/28/18 09/01/18 Unknown Rx Chlorpromazine [Thorazine] 25 mg PO Q6H PRN PRN #4 tab 09/02/18 Unknown Rx - History of Present Illness -Gen Adult Nature of Presenting Problems: 53 y/o male with recent diagnosis of stage IV colon CA with mets to liver and colonoscopy with descending colon stent placement yesterday presents to the ED with complaint of SOB, elevated heart rate, and decreased blood pressure. The patient states he had a bowel movement at 0200 and passed gas with worsening SOB and worsening generalized 8/10 constant pressure type abdominal pain since that time as well as nausea and vomiting. Location of Pain/Injury: reports: generalized Onset/Duration: reports: this morning Timing: reports: still present Associated Symptoms: reports: diarrhea, nausea, shortness of breath, vomiting Similar Symptoms Previously?: No Recently seen or treated by another doctor?: Yes (colonoscopy yesterday ) Review of Systems - Adult - REVIEW OF SYSTEMS - ADULT Constitutional: reports: no symptoms reported Eyes: reports: no symptoms reported Ears, Nose, Mouth & Throat: reports: no symptoms reported Cardiovascular: reports: other (decreased blood pressure, elevated heart rate). denies: chest pain, orthopnea, syncope Respiratory: reports: shortness of breath. denies: hemoptysis, pleurisy Gastrointestinal: reports: abdominal pain (generalized), diarrhea, nausea, vomiting Genitourinary: reports: no symptoms reported Musculoskeletal: reports: no symptoms reported Integumentary: reports: no symptoms reported Neurological: reports: dizziness/vertigo. denies: headache/migraines, syncope Psychiatric: reports: no symptoms reported Endocrine: reports: no symptoms reported Hematologic/Lymphatic: reports: no symptoms reported Allergic/Immunologic: reports: no symptoms reported All Other Systems: Reviewed and Negative Past History - Adult - PAST MEDICAL HISTORY-ADULT Review of Records: reports: Old Records Reviewed, Nursing Assessment Review, Medications Reviewed - IMMUNIZATION STATUS Childhood Immunizations: See Nurse Assessment Flu Vaccine: See Nurse Assessment - SOCIAL HISTORY Smoking: non-smoker Substance Use: denies Physical Exam-General - PHYSICAL EXAM-ADULT Initial Vital Signs Reviewed: Yes - CONSTITUTIONAL General Appearance: other (severely jaundiced). negative: appears well - EYES Eyes: scleral icterus - GASTROINTESTINAL (ABDOMEN) Abdominal Exam: normal bowel sounds, distended, rigid (minor rigidity), tend erness (diffusely) - SKIN Integumentary: jaundice - NEUROLOGIC Neurologic: grossly normal Progress - PLAN OF CARE/RESULTS Progress/Plan/Lab Results: Vital Signs - 8 hr 09/03/18 12:34 Temperature 96.4 F L Pulse Rate 137 H Respiratory Rate 16 Blood Pressure 90/67 O2 Sat by Pulse Oximetry 100 Laboratory Results - last 24 hr 09/03/18 09/03/18 09/03/18 12:45 12:45 12:45 WBC RBC Hgb Hct MCV MCH MCHC RDW Std Deviation Plt Count MPV Immature Gran % (Auto) Neut % (Auto) Lymph % (Auto) [place] % (Auto) Eos % (Auto) Baso % (Auto) Immature Gran # (Auto) Neut # (Auto) Lymph # (Auto) [place] # (Auto) Eos # (Auto) Baso # (Auto) PT INR PTT (Actin FS) Sodium 137 Potassium 4.7 Chloride 91 L Carbon Dioxide 22 L Anion Gap 24 BUN 38 H Creatinine 2.4 H Estimated GFR/1.73 m2 29 BUN/Creatinine Ratio 16 Glucose 172 H Calculated Osmolality 287 Calcium 9.0 Total Bilirubin 22.69 H AST 107 H ALT 92 H Alkaline Phosphatase 614 H Creatine Kinase 86 Troponin T < 0.010 Tln-A-Jaxefkxwwam Pept 1287 H Total Protein 6.0 L Albumin 2.8 L Globulin 3.2 Albumin/Globulin Ratio 0.9 09/03/18 09/03/18 12:45 12:45 WBC 11.18 H RBC 4.01 L Hgb 12.0 L Hct 35.8 L MCV 89.3 MCH 29.9 MCHC 33.5 RDW Std Deviation 19.2 H Plt Count 489 H MPV 10.6 H Immature Gran % (Auto) 0.6 H Neut % (Auto) 90.3 H Lymph % (Auto) 3.0 L [place] % (Auto) 6.0 Eos % (Auto) 0.0 Baso % (Auto) 0.1 Immature Gran # (Auto) 0.07 H Neut # (Auto) 10.10 H Lymph # (Auto) 0.33 L [place] # (Auto) 0.67 H Eos # (Auto) 0.00 Baso # (Auto) 0.01 PT 20.4 H INR 1.61 PTT (Actin FS) 46.1 H Sodium Potassium Chloride Carbon Dioxide Anion Gap BUN Creatinine Estimated GFR/1.73 m2 BUN/Creatinine Ratio Glucose Calculated Osmolality Calcium Total Bilirubin AST ALT Alkaline Phosphatase Creatine Kinase Troponin T Nnp-O-Tlsdjuyzfjt Pept Total Protein Albumin Globulin Albumin/Globulin Ratio Orders Category Date Time Status Cardiac Monitoring DIRECTED Care 09/03/18 13:20 Active Oxygen Therapy- ED Nursing DIRECTED Care 09/03/18 13:20 Active Saline Loc NOW Care 09/03/18 13:20 Active CHEST-PORTABLE [RAD] Stat Exams 09/03/18 13:25 Completed CBC WITH ELECTRONIC DIFF [HEME] Stat Lab 09/03/18 12:45 Completed CK PROFILE [SP CHEM] Stat Lab 09/03/18 12:45 Completed COMPREHENSIVE METABOLIC PANEL [CHEM] Stat Lab 09/03/18 12:45 Completed PRO B-NATRIURETIC PEPTIDE Stat Lab 09/03/18 12:45 Completed PROTIME WITH INR [COAG] Stat Lab 09/03/18 12:45 Completed PTT [COAG] Stat Lab 09/03/18 12:45 Completed TROPONIN T Stat Lab 09/03/18 12:45 Completed CP/SOB/Palp >45 yrs of Age Stat Oth 09/03/18 13:20 Ordered EKG [EKG] Stat Ther 09/03/18 13:20 Ordered A/P: Pt s/p stint in ascending colon yesterday for mass from stage 4 colon Ca with mets to liver. he has 1 BM at 2 am, since then has had progressevily worsening nasuea and vomiting, abdominal distension, pain. will admit to Dr qiu. Result Diagrams: 09/03/18 12:45 09/03/18 12:45 - EKG 1 Time of EKG reading by physician:: 12:47 EKG Read and Signed by:: Rome Mireles EKG Interpretation (*Must complete 3 of following elements*): Abnormal Rate: 131 Rhythm: sinus tachycardia [place]: normal Comments: cannot rule out anterior infarct age undetermined - XRAY 1 XRAY Study: Chest (EXAM: CHEST-PORTABLE INDICATION: CP TECHNIQUE: One view COMPARISON: 08/16/2018 FINDINGS: Lung volumes are low. There is suggestion of mild atelectasis at the lung bases. The lungs are grossly clear, otherwise. There is no discrete pleural fluid collection or pneumothorax. The cardiac silhouette appears to be within normal limits accounting for magnification from AP technique. IMPRESSION: Low lung volumes and suggestion of mild subsegmental atelectasis. Grossly unremarkable, otherwise. Electronically signed by Mil Borden 09/03/2018 1:38 PM) - CONSULTS/PCP/HOSPITALIST Notification #1 *Consult/PCP/Hospitalist*: Dr. Qiu Time Discussed: 14:30 Reason/Comments: Abdominal distension, rigidity, jaundice Consult Disposition: Admit Departure - Departure Date of Disposition Decision: 09/03/18 Time of Disposition Decision: 14:35 DIAGNOSIS: Abdominal distension, Colon cancer, Liver cancer, Jaundice, Nausea and vomiting, BRENT (acute kidney injury) Disposition: ADMITTED INPATIENT 09 Certified Medical Emergency: Emergent Condition: Serious Additional Freetext Instructions: ED Follow Up Instructions: You have been treated by a care provider in the Emergency Department. These instructions are being provided to you so you can have an understanding of how to care for yourself upon discharge. Upon discharge from the Emergency Department, you are responsible for making arrangements for follow-up care by a physician of your choice. Take all prescribed medications as directed. Return to the Emergency Department immediately for any new or worsening symptoms. You may call the Physician Referral phone number at [phone] to obtain a list of Physicians who are taking new patients. Referrals and Follow-Ups: Shweta Espino CRNP [Primary Care Provider] - - Critical Care Note This patient required my direct & personal management of CC.: Yes Attestation - Physician/ JOANNE Attestation Patient care was provided by Advanced Practice Provider:: No The physician spent face to face time with patient:: Yes Advanced Practice Provider documentation review:: Supervising physician onsite and consulted in the evaluation and care of this patient. The physician did have a face to face encounter with the patient. This chart was documented by the indicated scribe, (Shaunna Castillo, Karyna) and accurately reflects the services I performed and decisions made by me, Fernando Brown MD, as attested by the provider's signature.
[2018-09-03] MEDS: MORPHINE IV PRN ×3 (16:51→23:42)
[2018-09-03] MEDS: PROTONIX IV SCH (16:51)
[2018-09-03] MEDS ORDERED: MERREM 1 GM in NS 50 ML IV ONE (17:00)
--- NOTE | 2018-09-03 20:38 | HISTORY AND PHYSICAL ---
CHIEF COMPLAINT: Nausea, vomiting and dizziness. HISTORY OF PRESENT ILLNESS: Mr. Meneses is a 53-year-old male who comes into the ER today with complaints of nausea, feeling faint, decreased blood pressure, increased heart rate and vomiting at home. The patient states that on 09/02/2018 he had a stent placed into a tumor through the colon by Dr. Mak. The patient states that he went home yesterday and felt fine. He was able to eat a very small amount of fish last night for dinner and drank a couple of Glucerna shakes yesterday. Sometime last night he started feeling nauseous. The patient states he was dry-heaving because he did not have a lot down. He states that today he checked his blood pressure and it was 92 systolic and heart rate was 145. He was feeling faint, and decided to come into the ER. The patient has a significant history of colon cancer that was diagnosed a couple of weeks ago. The patient sees Dr. Ruiz. The patient sees Dr. Bustamante also for his cancer. The patient was in the hospital last week end and received chemotherapy while in the hospital. The patient denies any fever or chills, states that he just feels very weak. The patient is notably jaundiced all over. There is petechiae noted to bilateral lower extremities. The patient urinated prior to me seeing the patient. Urine was noted to be extremely dark, almost black in color. Abdomen is very distended and tender. Bowel sounds are present. The patient denies any diarrhea or constipation. Denies any blood in the stool or urine. PAST MEDICAL HISTORY: 1. Diabetes. 2. Hypertension. 3. Colorectal cancer with metastasis to the liver. 4. Weight loss, greater than 30 pounds in the past 3 months. PAST SURGICAL HISTORY: Cholecystectomy in 02/2018 and stent placed through the colon tumor on 09/02/2018, by Dr. Mak. FAMILY HISTORY: Father is and of aneurysm. Mother has irregular heart rhythm. SOCIAL HISTORY: The patient lives with his spouse, in [place]. Spouse is at the bedside with the patient. The patient denies any smoking, alcohol or drug abuse. The patient was still working up until the past couple of weeks, when he was diagnosed with cancer. 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 ALLERGIES: No known drug allergies. MEDICATIONS: Thorazine 25 mg p.r.n. hiccups; folic acid 1 mg; Zofran 4 mg p.r.n. nausea; MiraLAX 17 g; Phenergan 25 mg p.r.n. nausea. LABORATORY DATA: White blood cell count 11.18, hemoglobin 12.0, hematocrit 35.8, platelet count 489,000. PT is 20.4, INR is 1.61, PTT is 46.1. Sodium 137, potassium 4.7, chloride 91, carbon dioxide 22, BUN 38, creatinine 2.4, GFR is 29, glucose of 172, calcium 9.0, phosphorus 6.3, magnesium 1.9, total bilirubin 22.69, AST 107, ALT 92, alkaline phosphatase 614. Creatine kinase 86. Troponin less than 0.01. ProBNP is 1287. Lipase is 31. Plasma lactate is 4.5. Urinalysis is negative. DIAGNOSTIC DATA: Chest x-ray done on 09/03/2018 shows low lung volumes, suggestion of a mild subsegmental atelectasis; grossly unremarkable. CT of the abdomen and pelvis is performed. Results are pending. REVIEW OF SYSTEMS: A 14-point review of review of systems was completed. All are negative except what is stated above in HPI. PHYSICAL EXAMINATION: GENERAL: This is a very ill-appearing male who is 53 years old. The patient is in somewhat acute distress with exertion. He is able to answer all questions appropriately and lying on the ER stretcher. HEENT: Head is atraumatic, normocephalic. Pupils are equal, round and reactive to light. Sclerae are yellow. Mucous membranes are dry. No dentition noted. NECK: Supple. No lymphadenopathy. Trachea is midline. No JVD. CARDIOVASCULAR: Heart rate is 140, normal sinus tachycardia. No murmurs, gallops or rubs noted. S1, S2. RESPIRATORY: Lung sounds are diminished bilaterally. Equal chest expansion. The patient is tachypneic with shallow breaths, especially with exertion. GASTROINTESTINAL: Abdomen is distended and firm, tender to palpation. Bowel sounds are present. GENITOURINARY: The patient is voiding very dark brown urine, minimal amount. NEUROLOGIC: The patient is awake, alert, oriented, able to follow commands. Cranial nerves intact. MUSCULOSKELETAL: Positive sensation. Full distal strength. EXTREMITIES: Petechiae noted to bilateral lower extremities. No clubbing or cyanosis. Lower extremities have 1+ trace edema bilaterally. DP and PT pulses are present and +2. SKIN: Cool, dry and intact, with petechiae noted to bilateral lower extremities. ASSESSMENT: 1. Acute renal failure. 2. Liver failure. 3. Colorectal cancer with metastasis to the liver. 4. Nausea, vomiting and distended abdomen. 5. Elevated white blood cell count with possible sepsis. PLAN: We will admit this patient to the medical floor. Awaiting results for CT of the abdomen and pelvis. Consulted Dr. Ruiz to see the patient. We will keep the patient NPO. We will start the patient on normal saline at 75 mL/h, start the patient on Merrem 1 g IV q.12 hours. Protonix is ordered 4 mg IV q.24 hours. We will control pain with morphine 2 mg IV q.3 hours. Zofran 4 mg IV q.4 hours ordered for nausea. Dictated by NICOLAS Gore for Mando Wolf MD cc: MD Brandon Arita MD [facility]
--- NOTE | 2018-09-03 20:43 | Diag Imaging Result Doc PS360 ---
EXAM: CT ABDOMEN/PELVIS W/O CONTRAST INDICATION: abdominal distension w colon ca 4 mets liver TECHNIQUE: This exam was performed using automated exposure control, adjustment of mA or kV according to patient size, and/or use of iterative reconstruction technique. COMPARISON: 08/25/2018 FINDINGS: There has been interval development of a small right pleural effusion and bibasilar atelectasis. Superimposed aspiration pneumonia cannot completely be excluded. There has been interval placement of a descending colonic stent that traverses the known malignant mass that was seen on the previous study. There is fluid in the stent and narrowing at the central portion of the stent. However, it appears to remain patent. There has been interval development of multiple small droplets of extraluminal free gas throughout the abdomen indicating visceral perforation. The source of the free gas is probably the diseased segment of the descending colon. There is moderate free fluid throughout the abdomen, mainly tracking around the liver and layering in the pelvis that has developed during the interval. There is diffuse mesenteric edema and mild body wall edema suggesting anasarca. There are fluid-filled loops of small bowel with moderate distention that are nonspecific but probably related to ileus as there is no obvious transition point. The stomach is moderately distended. There are innumerable hepatic metastatic lesions that are stable. The remainder of the solid viscera of the abdomen and pelvis are grossly stable. IMPRESSION: 1.Interval placement of a stent at the site of the known malignant descending colonic mass. 2.Multiple small droplets of extraluminal free gas throughout the abdomen consistent with visceral perforation. The exact source is unknown. However, it is likely from the diseased segment of the descending colon. 3.Increase in ascites that is now moderate in volume with mesenteric and body wall anasarca. 4.Several moderately distended loops of small bowel containing air-fluid levels that are nonspecific but probably related to ileus. 5.Stable diffuse hepatic metastatic disease. 6.Development of a small right pleural effusion as well as bibasilar atelectasis. Superimposed aspiration pneumonia is not completely excluded. The findings were discussed with Fernando Brown MD at 09/03/2018 8:40 PM and was acknowledged. Electronically signed by Mil Borden 09/03/2018 8:40 PM
[2018-09-03] MEDS: HUMULIN R SUBQ SCH (20:46)
[2018-09-04] MEDS: THORAZINE PO PRN ×2 (01:38→08:25)
[2018-09-04] MEDS: MORPHINE IV PRN ×5 (01:45→16:43)
[2018-09-04] MEDS: MERREM 1 GM in NS 50 ML IV SCH ×2 (05:52→17:01)
[2018-09-04] MEDS: NS 1,000 ML IV SCH (05:52)
[2018-09-04] MEDS: HUMULIN R SUBQ SCH ×3 (06:07→16:19)
[2018-09-04 07:46] LABS: INR 2.05; PROTIME 24.7 Seconds (11.0-16.0)
[2018-09-04 07:47] LABS: PTT 54.9 Seconds (22.3-41.8)
[2018-09-04 07:53] LABS: EOS# 0.01 X1000 (0.0-0.7); EOS% 0.1 % (0.0-10.0); HEMATOCRIT 32.4 % (42.0-52.0); HEMOGLOBIN 10.7 g/dL (14.0-18.0); IMM GRAN# 0.03 X1000 (0.0-0.04); IMM GRAN% 0.4 % (0.0-0.5); LYMPH# 0.33 X1000 (1.2-3.4); LYMPH% 4.3 % (20.5-51.1); MCH 29.6 PG (27-31); MCV 89.5 FL (81-99); MONO# 0.36 X1000 (0.11-0.59); MONO% 4.6 % (1.7-9.3); NEUT# 7.02 X1000 (1.4-6.5); NEUT% 90.6 % (42.2-75.2); PLT 398 X1000 (130-400); RBC 3.62 XMIL (4.7-6.1); RDW 19.7 % (11.5-14.5); WBC 7.75 X1000 (4.8-10.8)
[2018-09-04 08:01] LABS: BANDS 30 % (0-1); HYPOCHROM 1+; LYMPHS 4 % (21-51); SEGS 66 % (42-75)
[2018-09-04 08:04] VITALS: BP 106/71
[2018-09-04 08:06] LABS: ALB/GLOB RATIO 0.6; ALBUMIN 2.3 g/dL (3.5-5.0); CALCIUM 8.1 mg/dL (8.8-10.2); CREATININE 3.1 mg/dL (0.7-1.2); MAGNESIUM 2.2 mg/dL (1.5-2.7); POTASSIUM 4.6 mmol/L (3.5-5.1); TOTAL BILIRUBIN 18.24 mg/dL (0.20-1.00); TOTAL PROTEIN 6.1 g/dL (6.3-8.3)
--- NOTE | 2018-09-04 08:07 | Diag Imaging Result Doc PS360 ---
EXAM: CHEST-PORTABLE INDICATION: acute kidney injury TECHNIQUE: One view COMPARISON: 09/03/2018 FINDINGS: Lung volumes are low likely previous study. Bibasilar atelectasis is essentially stable. No new consolidation is identified. Cardiac silhouette is stable. IMPRESSION: Stable chest. Electronically signed by Mil Borden 09/04/2018 8:05 AM
--- NOTE | 2018-09-04 10:25 | GASTROENTEROLOGY CONSULTATION ---
DATE: 09/04/2018 REASON FOR CONSULTATION: Metastatic colon cancer, jaundice, perforated viscus. HISTORY OF PRESENT ILLNESS: Mr. Aj Meneses is an unfortunate 53-year-old gentleman with a recent diagnosis of metastatic colorectal cancer, s/p first cycle of palliative chemotherapy a week ago and palliative colonic stent placement on 09/02, who presents with diffuse abdominal pain, intractable nausea and vomiting, and subjective fever. On presentation, he was hypotensive, tachycardiac and febrile up to 100.8. CT A/P revealed perforated viscus, likely related to underlying malignancy versus stent placement. He was fluid resuscitated and started on meropenem and admitted to the floor. Dr. Boucher, Dr. Bustamante, and myself were consulted for further evaluation and management and it was felt that patient was not a candidate for surgery given worsening liver failure, instability, and overall poor prognosis. Currently, he feels faint, has abdominal pain, and has been unable to urinate. No vomiting currently. REVIEW OF SYSTEMS: As per HPI. Also, continued to lose weight, jaundice. No chest pain or shortness of breath; otherwise 12 point ROS negative PAST MEDICAL HISTORY: NIDDM2, fatty liver, hypertension, metastatic colon cancer. PAST SURGICAL HISTORY: Cholecystectomy, colonic stent placement. MEDICATIONS: Thorazine, folic acid, Zofran, Phenergan, MiraLAX. ALLERGIES: No known drug allergies. SOCIAL HISTORY: The patient lives at home with his and children. No T/E/D. FAMILY HISTORY: No family history of GI malignancies. PHYSICAL EXAMINATION: Vital Signs: Temperature is 97.4, heart rate is 121, blood pressure 106/71, O2 saturation 94% on room air. Generally: Patient is lethargic, arousable, chronically ill- appearing, in no acute distress. HEENT: Scleral icterus is present. Extraocular motor is intact. Moist mucous membranes. Neck: Supple. No JVD or lymphadenopathy. Cardiac: Tachycardic, regular. No murmurs. Lungs: Clear to auscultation bilaterally. He does have some increased work of breathing. Abdomen: Distended and tympanic. Bowel sounds are present. Mild diffuse tenderness. Difficult to appreciate ascites. Extremities: No clubbing, cyanosis, or edema. Skin: Warm and well perfused. Deep jaundice. Neurologic: Cranial nerves 2-12 intact. Moving all extremities. LABS: White count of 11.18, hemoglobin 12.0, platelets of 489,000. INR today is 2.2 from 1.6. Sodium 137, potassium 4.7, chloride 91, bicarb 22, iron gap 24, BUN is 38, creatinine of 2.4, currently 3.1. Glucose 172, total bilirubin 22, AST 107, ALT of 92, alkaline phosphatase of 614, ammonia unable to verify given interference. CK of 86. Troponin is negative. ProBNP of 1287, total protein of 6.0, albumin 2.8, lactate of 4.5, lipase 31. UA shows trace blood, large bilirubin, red blood cells 20-40, protein 30. IMAGING: Chest x-ray shows low lung volumes and suggestion of mild subsegmental atelectasis. Grossly unremarkable. CT of the abdomen and pelvis shows interval placement of stent at the site of malignancy in the descending colon. Multiple small droplets of extraluminal free gas throughout the abdomen consistent with visceral perforation. Increased ascites, moderate in volume, with mesenteric and body wall anasarca. Several moderately distended loops of small bowel containing air-fluid levels, stable diffuse hepatic metastatic disease, development of a small right pleural effusion as well as bibasilar atelectasis. Superimpose aspiration pneumonia is not completely excluded. ASSESSMENT AND PLAN: Mr. Aj Meneses is an unfortunate 53-year-old gentleman with metastatic colon cancer with metastasis to the peritoneum and liver, who recently underwent palliative chemotherapy and colonic stent placement for bowel obstruction who presents with multiorgan failure and sepsis likely from bowel perforation. He has worsening liver failure, anuric acute kidney injury, and fever. He is currently on antibiotics, IV fluids, and NPO. I had a long discussion with the patient and the spouse at the bedside about his current condition and declining status. He currently is not a surgical candidate for his bowel perforation given his worsening liver failure and unlikelihood of recovery postop. He also is no longer a candidate for further chemotherapy. The patient and family would like for him to go home with hospice services, although they were not prepared to change his code status at the moment. I explained to him that if he develops respiratory failure or if his heart were to stop that he would be resuscitated, which would lead to a poor outcome for him. They understood this, but did not want to changed at this moment. I have placed a hospice consult order now. We will await further recommendations. For now, we will continue the current course. Prognosis is poor. Plan discussed with Citlaly Chamberlain, and Robby. Thank you for this consult. [facility]
--- NOTE | 2018-09-04 10:43 | PROGRESS NOTE ---
DATE: 09/04/2018 SUBJECTIVE: This patient is lying in bed. He is complaining of abdominal pain. He has a history of colorectal cancer with metastasis to the liver and spleen. He came in yesterday complaining of nausea, vomiting, and abdominal distention. CT of the abdomen and pelvis showed malignant descending colonic mass and perforation, ascites, distended loops with possible ileus, hepatic metastatic disease, and right pleural effusion with possible superimposed aspiration pneumonia. I discussed the case with Oncology Department, Surgery Department, and Gastroenterology Department. At this point, we do not feel that any kind of treatment will be helpful for this patient. After talking to the patient, he has decided to be evaluated by hospice, and hopefully we can discharge this patient today once hospice care arranges everything for him at home. He is still full code, but the wants him to be DO NOT RESUSCITATE. OBJECTIVE: Vital Signs: Temperature 97.4, pulse 121, respiratory rate 18, blood pressure 106/71, oxygen saturation 94% on room air. HEENT: Head normocephalic. No trauma. PERRLA. Icteric sclerae. Skin: Jaundice. Neck: Supple. No JVD. Central trachea. Chest: Coarse breath sounds at the left base with some crackles as well. Abdomen: Distended. Generalized tenderness to palpation. Decreased bowel sounds. Extremities: Edema. No clubbing. No cyanosis. Neurological: This patient is sleepy, but arousable. He is answering some of my questions. LABORATORY DATA: WBC 7.7, hemoglobin 10.7, hematocrit 32.4, platelets 398,000. Sodium 133, potassium 4.6, chloride 93, bicarbonate 20, BUN 60, creatinine 3.1, glucose 133, calcium 8.1. Total bilirubin 18.2, AST 95, ALT 73, alkaline phosphatase 454, albumin 2.3. ASSESSMENT AND PLAN: 1. Colorectal cancer with metastasis to the liver and spleen. Dr. Bustamante following this patient. At this point, he did not respond to chemotherapy. They have recommended hospice care for this patient. 2. Bowel perforation. Surgery Department discussed the case with me, and no further treatment for now. 3. Acute kidney injury. Will continue with intravenous fluids. It is getting worse. 4. Liver failure. This patient has severe metastatic disease in the liver. Case has been discussed with the at the bedside. Gastroenterology Department evaluated this patient. No treatment can be provided at this moment. 5. Nausea, vomiting, and abdominal distention, likely secondary to bowel perforation and/or ileus. We will continue to monitor this patient. Hospice consult has been requested as well as Palliative Care. 6. Sepsis, likely secondary to possible pneumonia and bowel perforation. He has been placed on antibiotics already. WBC is better. Overall, his prognosis is extremely poor. I had a conversation with the at the bedside. She also saw the images. She would like this patient to be DO NOT RESUSCITATE, but he wants to be full code still. We have requested a hospice evaluation. Continue with treatment, and try to keep this patient comfortable. cc: Mando Wolf MD
--- NOTE | 2018-09-04 13:02 | HEMO/ONC CONSULTATION ---
DATE: 09/04/2018 REASON FOR CONSULTATION: Metastatic colon cancer. HISTORY OF PRESENT ILLNESS: The patient is a 53-year-old, male with a past history of hypertension, diabetes, and fatty liver, who was recently diagnosed with metastatic colon cancer. He came into the ER yesterday with complaints of nausea, feeling faint, decreased blood pressure, increased heart rate, and vomiting. The patient had stents placed by Dr. Mak into the tumor through the colon on 09/02/2018. After going home from that procedure, he felt fine. He was able to eat a small amount and drink a few protein shakes. Sometime during the night, he started to begin to feel nauseated. His blood pressure was very low and his heart rate was very high. The patient has a significant history of colon cancer that was only diagnosed a few weeks ago. He received his first chemotherapy while in the hospital last week. The patient denies any fevers or chills. He does feel very weak. He is notably jaundiced. Abdomen is very distended and tender. PAST MEDICAL HISTORY: Diabetes, hypertension, fatty liver disease, colorectal cancer with metastasis to the liver, and a weight loss of greater than 30 pounds in the last 3 months. PAST SURGICAL HISTORY: Cholecystectomy, meniscus repair, stenting through the colon tumor on 09/02/[address] Mak. SOCIAL HISTORY: He denies smoking, alcohol, or substance abuse. REVIEW OF SYSTEMS: Positive for weight loss, abdominal pain. ALLERGIES: No known drug allergies. HOME MEDICATIONS: Thorazine, folic acid, Zofran, MiraLAX, Phenergan. PHYSICAL EXAMINATION: VITAL SIGNS: Temperature 97.4 degrees, pulse rate 121, respiratory rate 18, blood pressure 106/71, O2 saturation 94% on nasal cannula at 2 L, and 8/10 pain. Eyes: Icteric. PERRLA. Respiratory: Lungs are clear to auscultation. Cardiac Examination: S1, S2 noted. Regular rate and rhythm. Abdomen: Distended. Diffuse tenderness. Ascites present. Neurologic: Drowsy. No focal motor deficits. LABORATORY DATA: WBCs 7.75, hemoglobin 10.7, hematocrit 32.4, platelet count 398,000. PT 24.7, PTT 54.9, INR 2.05. Sodium 133, potassium 4.6, creatinine 3.1. Total bilirubin 18.24. Albumin 2.3. RADIOLOGICAL DATA: This morning's chest x-ray shows stable chest, bibasilar atelectasis. Abdominal CT noted interval stent placement at the known malignant descending colonic mass, droplets of extraluminal free gas throughout the abdomen consistent with visceral perforation, increased ascites, distended loops of small bowel containing air-fluid, diffuse hepatic metastatic disease. ASSESSMENT: 1. Colorectal cancer with metastasis to the liver and spleen. 2. Bowel perforation. 3. Acute kidney injury. 4. Liver failure. 5. Nausea, vomiting, and abdominal distention, likely secondary to bowel perforation. 6. Sepsis. 7. Deep venous thrombosis prophylaxis. PLAN: Overall prognosis is extremely poor. Dr. Bustamante spent extensive time discussing with the patient and the patient's prognosis. They are considering a Do Not Resuscitate level at this time and would request to go home on hospice. The hospice team should be working on this. From our standpoint, we are okay with the patient going home on hospice. The patient needs comfort measures. Please keep the patient comfortable and support as requested. Dictated by NICOLAS Sams for Jatin Bustamante MD Patient seen and examined. As above. He was recently diagnosed to have metastatic colon cancer about 1-1/2 weeks ago. At that time his bilirubin was over 9. We give him a cycle of chemotherapy with hopes of returning things around. He had near obstructing cancer and Dr. Mak placed a colonic stent. Later that night he nausea and abdominal distention and presented to the ER. Labs revealed significant worsening of liver dysfunction. He also has developed acute renal failure now. He has been admitted with what appears to be sepsis and bowel perforation. I had a lengthy discussion with the patient and his family. I have also discussed this with hospitalist and Dr. Ruiz. His prognosis is extremely poor. I discussed comfort measure and hospice and they are agreeable. We will make arrangements for the same. Jatin Bustamante M.D. cc: Jatin Bustamante MD [facility]
[2018-09-04] MEDS: PROTONIX IV SCH (17:00)
--- NOTE | 2018-09-04 19:28 | DISCHARGE SUMMARY ---
ADMISSION DATE: 09/03/2018 DISCHARGE DATE: 09/04/2018 DISCHARGE DIAGNOSES: 1. Colorectal cancer with metastasis to the liver and spleen. 2. Bowel perforation. 3. Acute kidney injury. 4. Liver failure. 5. Nausea, vomiting, abdominal distention secondary to bowel perforation and/or ileus. 6. Sepsis likely secondary to possible pneumonia and bowel perforation. HOSPITAL COURSE: 53-year-old male admitted on 09/03/2018 due to nausea, abdominal distention, decreased blood pressure, tachycardia and nausea, vomiting. He had a procedure done on 09/02/2018 where a stent was placed in the colon due to a tumor by Dr. Mak then the patient went home and felt okay. He was able to eat a small amount of food and he took some Glucerna shakes the day before of admission but during the night started feeling nauseous. He was feeling faint. His abdomen started to increase in size so he decided to come to the OR. Recently this patient was diagnosed with colon cancer with metastasis to the liver and also spleen and actually he received the 1st round of chemotherapy while he was in the hospital last time. He denied any fever or chills but he felt very weak. The CT scan showed a perforation but at this point, given his current presentation, his poor prognosis, his advanced metastatic colon cancer, it has been decided that the best plan for him would be to go with hospice. We talked to him multiple times about change his status from full code to DNR but he refused even though the agreed with that. All the subspecialties, Oncology, Surgery and Gastroenterology Department agree with hospice care. The patient's and the family agreed to go ahead and ask for hospice so he has been discharged home with [facility]. His prognosis is extremely poor. PHYSICAL EXAMINATION: Vital signs: Temperature 97.4 degrees, pulse 121, respiratory rate 18, blood pressure 106/71, oxygen saturation 94 on nasal cannula. HEENT: Head normocephalic. No trauma. PERRLA. Icteric sclerae. Skin jaundiced. Neck: Supple. No JVD. Central trachea. Chest: Coarse breath sounds mostly at the bases, more significant at the left base. Abdomen: Distended. Generalized tenderness to palpation. Decreased bowel sounds. Extremities: Edema, no clubbing, no cyanosis. Neurological: This patient is sleepy but arousable. He was answering some of my questions. Skin: Jaundice. LABORATORY: WBC 7.7, hemoglobin 10.7, hematocrit 32.4, platelets 398,000. Sodium 133, potassium 4.6, chloride 93, bicarbonate 20, BUN 60, creatinine 3.1, glucose 133, calcium 8.1, total bilirubin 18.2, AST 95, ALT 73, alkaline phosphatase 457. This patient will be discharged home with hospice, all the medications will be provided by hospice care. TIME SPENT: 35 minutes. cc: Mando Wolf MD
--- NOTE | 2018-09-05 08:35 | EKG Report ---
Test Performed on : 09/03/2018 12:41:52 PM Test Reason : Dizziness/Tachycardia Blood Pressure : / mmHG Vent. Rate : 131 BPM Atrial Rate : 131 BPM P-R Int : 126 ms QRS Dur : 064 ms QT Int : 296 ms P-R-T Axes : 030 027 006 degrees QTc Int : 437 ms Sinus tachycardia. Cannot rule out Anterior infarct , age undetermined Abnormal ECG No previous ECGs available Unconfirmed Result
== END 2018-09-04 18:36 | disposition hospice, home (50) | DRG 871 ==
LOC: ED 12:30 → 3N 17:24
PROVIDERS: ATTEND Internal Medicine
CPT/HCPCS: 71010; 71045; 74176; 80053; 81001; 82140; 82550; 82948; 83605; 83690; 83735; 83880; 84100; 84484; 85025; 85610; 85730; 87040; 93005; A9270; C9113; J2185; J2270; J2405; J7030; S0164; XXXXX